=== PATIENT | male | born 1975 | race Caucasian/White ===

== ENCOUNTER 2023-02-08 11:42 | Emergency (ER) | payer OTHER, SELFPAY ==
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
[2023-02-08 11:55] VITALS: BP 152/94; PULSE 88; RESP 16; TEMP 36.7; O2SAT 99; BMI 44.9
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
== END 2023-02-08 16:05 | disposition home or self-care (01) ==
PROVIDERS: Emergency Provider Emergency Medicine Emergency Medical Services
DX: S70.11XA Contusion of right thigh, initial encounter (principal); R60.0 Localized edema; M79.604 Pain in right leg; V49.40XA Driver injured in collision with unspecified motor vehicles in traffic accident, initial encounter; Y93.9 Activity, unspecified; Y92.410 Unspecified street and highway as the place of occurrence of the external cause; Y99.9 Unspecified external cause status
CPT/HCPCS: 73552; 73590; 93971; 99282; 99284